=== PATIENT | female | born 1940 | race Caucasian/White ===

== ENCOUNTER 2017-05-25 06:51 | Emergency (ER) | payer MEDICARE ==
[2017-05-25 08:15] LABS: ABSOLUTE BASOPHILS # (AUTO) 0.1 10^3/uL (0.0-0.2); ABSOLUTE EOSINOPHILS # (AUTO) 0.1 10^3/uL (0.0-0.6); ABSOLUTE LYMPHOCYTES (AUTO) 0.9 10^3/uL (0.5-4.7); ABSOLUTE MONOCYTES (AUTO) 0.5 10^3/uL (0.1-1.4); ABSOLUTE NEUT (AUTO) 6.4 10^3/uL (1.7-8.2); BASOPHILS % (AUTO) 0.7 % (0-2); EOSINOPHILS % (AUTO) 1.7 % (0-6); HEMATOCRIT 40.5 % (36.0-47.0); HEMOGLOBIN 13.8 g/dL (12.0-15.5); HGB HCT DIFFERENCE 0.9; LYMPHOCYTES % (AUTO) 11.6 % (13-45); MEAN CORPUSCULAR HEMOGLOBIN 31.4 pg (27.0-33.4); MEAN CORPUSCULAR HGB CONC 34.1 g/dL (32.0-36.0); MEAN CORPUSCULAR VOLUME 92 fl (80-97); MONOCYTES % (AUTO) 5.8 % (3-13); RED BLOOD COUNT 4.39 10^6/uL (3.72-5.28); RED CELL DISTRIBUTION WIDTH 13.8 % (11.5-14.0); SEGMENTED NEUTROPHILS % (AUTO) 80.2 % (42-78)
[2017-05-25 08:34] LABS: ALANINE AMINOTRANSFERASE 19 U/L (9-52); ALBUMIN 3.5 g/dL (3.5-5.0); ALKALINE PHOSPHATASE 62 U/L (38-126); ANION GAP 8 (5-19); ASPARTATE AMINO TRANSFERASE 15 U/L (14-36); BILIRUBIN,DIRECT 0.3 mg/dL (0.0-0.4); BILIRUBIN,TOTAL 0.9 mg/dL (0.2-1.3); BLOOD UREA NITROGEN 11 mg/dL (7-20); CALCIUM 9.2 mg/dL (8.4-10.2); CARBON DIOXIDE 28 mmol/L (22-30); CHLORIDE 107 mmol/L (98-107); CREATININE RESULT 0.79 mg/dL (0.52-1.25); GLUCOSE 101 mg/dL (75-110); POTASSIUM 3.2 mmol/L (3.6-5.0); SODIUM 142.9 mmol/L (137-145); TOTAL PROTEIN 5.7 g/dL (6.3-8.2)
[2017-05-25 08:39] LABS: PROTHROMBIN TIME 12.6 SEC (11.4-15.4)
[2017-05-25 08:40] LABS: PARTIAL THROMBOPLASTIN TIME 25.3 SEC (23.5-35.8)
[2017-05-25] MEDS ORDERED: ONDANSETRON 4 MG TAB.RAPDIS PO ONE (09:00)
--- NOTE | 2017-05-25 09:02 | ER Document Report ---
ED General - General Chief Complaint: Weakness Stated Complaint: WEAKNESS Time Seen by Provider: 05/25/17 07:37 Mode of Arrival: Ambulatory Information source: Patient Notes: Patient presents emergency department with complaints of constant diarrhea since Saturday. Patient reports she has diarrhea after she eats. Reports this stool is light brown. in pieces, like a baby's stool. She has been able to eat and drink but very little. She reports abdominal pain when she has the diarrhea but not abdominal pain otherwise. She denies fever and vomiting. Reports no other family members ill. Has history of IBS but feels this is different. Has taken Imodium without relief of symptoms, reports she is feeling weak and dizzy due to diarrhea. TRAVEL OUTSIDE OF THE [place] IN LAST 30 DAYS: No - HPI Onset: Other - saturday Quality of pain: No pain - at this time, reports pain with diarrhea only Associated symptoms: Weakness Exacerbated by: Other - diarrhea Relieved by: Denies Similar symptoms previously: Yes Recently seen / treated by doctor: No - Related Data Allergies/Adverse Reactions: succinylcholine chloride [From Anectine] Allergy (Verified 05/25/17 06:55) APNEA FOR 3 HOURS, ON VENT. Past Medical History - General Information source: Patient Last Menstrual Period: hyst - Social History Smoking Status: Never Smoker Cigarette use (# per day): No Frequency of alcohol use: None Drug Abuse: None Lives with: Family Family History: Reviewed & Not Pertinent Patient has suicidal ideation: No Patient has homicidal ideation: No - Past Medical History Cardiac Medical History: Reports: Hx Hypercholesterolemia, Hx Hypertension - medicated Denies: Hx Heart Attack Pulmonary Medical History: Denies: Hx Asthma Neurological Medical History: Denies: Hx Seizures Endocrine Medical History: Denies: Hx Diabetes Mellitus Type 1, Hx Diabetes Mellitus Type 2 Renal/ Medical History: Denies: Hx Peritoneal Dialysis Malignancy Medical History: Reports: Hx Breast Cancer GI Medical History: Reports: Hx Irritable Bowel. Denies: Hx Hiatal Hernia, Hx Ulcer Past Surgical History: Reports: Hx Appendectomy, Hx Hysterectomy, Hx Mastectomy - Left (restricted extremity). Denies: Hx Open Heart Surgery Review of Systems - Review of Systems Notes: Review HPI for review of systems., All other systems negative Physical Exam - Vital signs Vitals: Temp Pulse Resp BP Pulse Ox 97.9 F 74 20 110/55 L 97 05/25/17 06:55 05/25/17 06:55 05/25/17 06:55 05/25/17 06:55 05/25/17 06:55 - Notes Notes: PHYSICAL EXAMINATION: GENERAL: Well-appearing and in no acute distress HEAD: Atraumatic, normocephalic. EYES: Pupils equal round and reactive to light, extraocular movements intact, sclera anicteric, conjunctiva are normal. ENT: nares patent, oropharynx clear without exudates. Moist mucous membranes. NECK: Normal range of motion, supple without lymphadenopathy LUNGS: CTAB and equal. No wheezes rales or rhonchi. HEART: Regular rate and rhythm without murmurs ABDOMEN: No tenderness with palpation. No guarding, no rebound , firm area noted to posterior umbilical area, no pain with palpation EXTREMITIES: Normal range of motion, no pitting edema. No cyanosis. NEUROLOGICAL: Cranial nerves grossly intact. Normal sensory/motor exams. PSYCH: Normal mood, normal affect. SKIN: Warm, Dry, normal turgor, no rashes or lesions noted Course - Re-evaluation Re-evalutation: 05/25/17 09:09 New-onset A. fib noted patient denies history 05/25/17 09:49 pt unable to void, reports she always has trouble voiding, straight cath ordered 05/25/17 12:17 Patient updated on a fib, all labs, CT which shows renal pelvis calculus at 2.3 cm which was confirmed with radiology, also shows gallstones with no cholecystitis. Patient has not had any further diarrhea since arrival. She looks good, no complaints of chest pain or shortness of breath, no distress. Dr. Smith consulted. agrees with stool for c diff, parasites, waiting for TSH. Plan to discharge pt to home with fu for cardiology, urology, pcp. pt aware of plan. Diarrhea probably due to Chronic IBS. Straight cath UA with moderate leukocytes, 15 wbc's- will treat for UTI 05/25/17 13:43 C diff neg, WBC's neg, - Vital Signs Vital signs: Temp Pulse Resp BP Pulse Ox 98.6 F 74 17 123/86 H 99 05/25/17 14:15 05/25/17 08:00 05/25/17 14:01 05/25/17 14:00 05/25/17 14:01 - Laboratory Result Diagrams: 05/25/17 08:05 05/25/17 08:05 Laboratory results interpreted by me: 05/25/17 05/25/17 05/25/17 08:05 08:05 08:05 Seg Neutrophils % 80.2 H Lymphocytes % 11.6 L Potassium 3.2 L Total Protein 5.7 L Lipase 10.1 L Urine Protein Urine Blood Ur Leukocyte Esterase Stool for White Cells 05/25/17 05/25/17 10:00 12:30 Seg Neutrophils % Lymphocytes % Potassium Total Protein Lipase Urine Protein 100 H Urine Blood LARGE H Ur Leukocyte Esterase MODERATE H Stool for White Cells RARE H - Diagnostic Test Radiology reviewed: Image reviewed, Reports reviewed - Gallstones, 2.3 cm renal pelvis calculus with hydronephrosis - EKG Interpretation by Me Rate: Normal Rhythm: A.Fib Discharge - Discharge Clinical Impression: Atrial fibrillation with normal ventricular rate, Renal calculus, right, Gallstones Diarrhea Qualifiers: Diarrhea type: unspecified type Qualified Code(s): R19.7 - Diarrhea, unspecified UTI (urinary tract infection) Qualifiers: Urinary tract infection type: site unspecified Hematuria presence: with hematuria Qualified Code(s): N39.0 - Urinary tract infection, site not specified Condition: Stable Disposition: HOME, SELF-CARE Instructions: Atrial Fibrillation ([facility]), Cephalexin ([facility]), Diarrhea, Nonspecific ([facility]), Urinary Tract Infection ([facility]) Additional Instructions: *You have been evaluated for diarrhea, renal calculus, new onset atrial fib, UTI *Take medication as prescribed for UTI *Push fluids *Follow up with your primary care provider on Saturday for referral to customs director and urologist as indicated, take the copy of your CT with you *Plan urine recheck in one week *Return to ED for worsening condition, changes, needs Prescriptions: Cephalexin Monohydrate [Keflex 500 mg Capsule] 500 mg PO QID #10 capsule Referrals: DALE KEYES MD [Primary Care Provider] - 05/27/17
[2017-05-25 10:33] LABS: APPEARANCE,URINE SLIGHTLY-CLOUDY; BILIRUBIN,URINE NEGATIVE (NEGATIVE); GLUCOSE, URINE NEGATIVE (NEGATIVE); KETONES,URINE NEGATIVE (NEGATIVE); LEUKOCYTE ESTERASE,URINE MODERATE (NEGATIVE); NITRITE,URINE NEGATIVE (NEGATIVE); PROTEIN,URINE 100 mg/dL (NEGATIVE); URINE SPECIFIC GRAVITY 1.006; UROBILINOGEN,URINE NEGATIVE mg/dL (<2.0)
--- NOTE | 2017-05-25 10:47 | RADIOLOGY REPORT (SQ) ---
EXAM DESCRIPTION: CHEST PA/LAT COMPLETED DATE/TIME: 05/25/2017 10:39 am REASON FOR STUDY: new onset a fib COMPARISON: 08/31/2009. EXAM PARAMETERS: NUMBER OF VIEWS: two views TECHNIQUE: Digital Frontal and Lateral radiographic views of the chest acquired. RADIATION DOSE: NA LIMITATIONS: none FINDINGS: LUNGS AND PLEURA: No opacities, masses or pneumothorax. No pleural effusion. MEDIASTINUM AND HILAR STRUCTURES: No masses or contour abnormalities. HEART AND VASCULAR STRUCTURES: Heart normal size. No evidence for failure. BONES: No acute findings. HARDWARE: Surgical clips in the soft tissues. OTHER: No other significant finding. IMPRESSION: NO SIGNIFICANT RADIOGRAPHIC FINDING IN THE CHEST. TECHNICAL DOCUMENTATION: JOB ID: [id number] [email or web address]- All Rights Reserved
[2017-05-25 11:17] LABS: CREATINE KINASE MB 0.55 ng/mL (<4.55)
[2017-05-25 11:18] LABS: TROPONIN I < 0.012 ng/mL
--- NOTE | 2017-05-25 11:20 | RADIOLOGY REPORT (SQ) ---
EXAM DESCRIPTION: CT ABD/PELVIS WITH IV ORAL COMPLETED DATE/TIME: 05/25/2017 10:53 am REASON FOR STUDY: abd pain, diarrhea COMPARISON: None. TECHNIQUE: CT scan of the abdomen and pelvis performed using helical scanning technique with dynamic intravenous contrast injection. No oral contrast. Images reviewed with lung, soft tissue, and bone windows. Reconstructed coronal and sagittal MPR images reviewed. Delayed images for evaluation of the urinary system also acquired. All images stored on PACS. All CT scanners at this facility use dose modulation, iterative reconstruction, and/or weight based d osing when appropriate to reduce radiation dose to as low as reasonably achievable (ALARA). [facility]: Dose Right [facility]: CareDose [facility]: Dose Right [facility]: Teradose 4D [facility]: Loku CONTRAST TYPE AND DOSE: contrast/concentration: Isovue 370.00 mg/ml; Total Contrast Delivered: 84.0 ml; Total Saline Delivered: 69.0 ml RENAL FUNCTION: BUN 11 creatinine 0.79. RADIATION DOSE: Up-to-date CT equipment and radiation dose reduction techniques were employed. CTDIv ol: 14.1 - 18.6 mGy. DLP: 1554 mGy-cm.. LIMITATIONS: None. FINDINGS: LOWER CHEST: No significant findings. No nodules or infiltrates. LIVER: Normal size. No masses. No dilated ducts. SPLEEN: Normal size. No focal lesions. PANCREAS: No masses. No significant calcifications. No adjacent inflammation or peripancreatic fluid collections. Pancreatic duct not dilated. GALLBLADDER: Gallstones. No inflammatory changes to suggest cholecystitis. ADRENAL GLANDS: No significant masses or asymmetry. RIGHT KIDNEY AND URETER: No solid masses. 2.3 cm calculus in the renal pelvis. Average Hounsfield units approaching 1,000. Moderate hydronephrosis. Parapelvic low-attenuation may be due to parapel juan cyst versus lipomatosis. LEFT KIDNEY AND URETER: No solid masses. No significant calcifications. No hydronephrosis or hydr oureter. AORTA AND VESSELS: No aneurysm. No dissection. Renal arteries, SMA, celiac without stenosis. RETROPERITONEUM: No retroperitoneal adenopathy, hemorrhage or masses. BOWEL AND PERITONEAL CAVITY: No masses or inflammatory changes. No free fluid or peritoneal masses. APPENDIX: Surgically absent. PELVIS: No mass. No free fluid. Normal bladder. ABDOMINAL WALL: No masses. No hernias. BONES: No significant or acute findings. OTHER: No other significant finding. IMPRESSION: 1. LARGE CALCULUS IN THE RIGHT RENAL PELVIS WITH MODERATE HYDRONEPHROSIS. 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 2. GALLSTONES. 3. NO OTHER SIGNIFICANT OR ACUTE FINDING IN THE ABDOMEN OR PELVIS ON CT SCAN WITH IV CONTRAST. TECHNICAL DOCUMENTATION: JOB ID: [id number] Quality ID # [id number]: Final reports with documentation of one or more dose reduction techniques (e.g., Au tomated exposure control, adjustment of the mA and/or kV according to patient size, use of iterative reconstruction technique) 2010 [email or web address]- All Rights Reserved
--- NOTE | 2017-05-25 11:51 | EKG REPORT ---
SEVERITY:- ABNORMAL ECG - ATRIAL FIBRILLATION, V-RATE 60-94 CONSIDER LEFT VENTRICULAR HYPERTROPHY : Confirmed by: Isidra Caruso 25-May-2017 11:51:03
[2017-05-25 14:14] VITALS: BP 123/86
== END 2017-05-25 14:28 | disposition home or self-care (01) ==
LOC: ER 06:51
DX: I48.91 Unspecified atrial fibrillation (principal); N20.0 Calculus of kidney; K80.80 Other cholelithiasis without obstruction; N39.0 Urinary tract infection, site not specified; R53.1 Weakness; R19.7 Diarrhea, unspecified; E78.00 Pure hypercholesterolemia, unspecified; Z90.710 Acquired absence of both cervix and uterus; Z85.3 Personal history of malignant neoplasm of breast
CPT/HCPCS: 93005; 99285; 51701; 36415; 87045; 87086; 89055; 87205; 82553; 82550; 83690; 84443; 85025; 85610; 85730; 82272; 80053; 81001; 84484; 87493; 71020; 74177; 93010; A9270; S0119